=== PATIENT | male | born 1960 | race Caucasian/White ===

== ENCOUNTER → 2017-09-18 | Outpatient (CLI) | payer OTHER | END | disposition home or self-care (01) | LOC: ST 09:36 | PROVIDERS: ATTEND Family Medicine | DX: M17.0 Bilateral primary osteoarthritis of knee (principal) | CPT/HCPCS: 93005 ==

== ENCOUNTER → 2017-09-29 | Outpatient (CLI) | payer OTHER ==
[~2017-09-29] MED LIST: SERT100T PO
[2017-09-29 10:25] LABS: MICROSCOPIC AUTO
[2017-09-29 10:26] LABS: CULTURE INDICATED? YES
[2017-09-29 10:29] LABS: BASOPHILS # (AUTO) 0.03 x10^3/uL (0-0.1); BASOPHILS % (AUTO) 0 % (0-1); EOSINOPHILS # (AUTO) 0.32 x10^3/uL (0-0.4); EOSINOPHILS % (AUTO) 3 % (1-7); LYMPHOCYTES # (AUTO) 1.51 x10^3/uL (1-3.4); LYMPHOCYTES % (AUTO) 15 % (22-44); MD NO; MEAN CORPUSCULAR HEMOGLOBIN 30.1 pg (27.5-34.5); MEAN CORPUSCULAR HGB CONC 33.8 g/dL (33.2-36.2); MEAN PLATELET VOLUME 10.2 fL (7.4-10.4); MONOCYTES # (AUTO) 0.69 x10^3/uL (0.2-0.8); MONOCYTES % (AUTO) 7 % (2-9); NEUTROPHILS # (AUTO) 7.65 x10^3/uL (1.8-6.8); NEUTROPHILS % (AUTO) 75 % (42-75); PLATELET COUNT 219 x10^3/uL (130-400); RED BLOOD COUNT 5.46 x10^6/uL (4.38-5.82); RED CELL DISTRIBUTION WIDTH 13.7 % (9.4-14.8)
== END | disposition home or self-care (01) ==
LOC: STAR 09:07
PROVIDERS: ATTEND Orthopaedic Surgery
DX: Z01.818 Encounter for other preprocedural examination (principal); M17.0 Bilateral primary osteoarthritis of knee
CPT/HCPCS: 36415; 81001; 85025; 87081; 87086

== ENCOUNTER 2017-10-06 09:20 | Inpatient (IN) | payer OTHER ==
[~2017-10-06] VITALS: Ht 185.4 cm; Wt 130.8 kg
[2017-10-06] MEDS ORDERED: LACTATED RINGERS 1,000 ML IV SCH (10:43)
[2017-10-06] MEDS ORDERED: OxyconTIN ER 20 MG TAB.ER PO ONE (11:00)
[2017-10-06] MEDS ORDERED: TAMSULOSIN 0.4 MG CAP.ER.24H PO ONE (11:00)
[2017-10-06] MEDS ORDERED: GABAPENTIN 300 MG CAPSULE PO ONE (11:00)
[2017-10-06] MEDS ORDERED: ACETAMINOPHEN 500 MG TABLET PO ONE (11:00)
[2017-10-06] MEDS ORDERED: MIDAZOLAM 1 MG/ML, 2ML ONE (11:34)
[2017-10-06] MEDS ORDERED: FENTANYL PF 250 MCG/5ML ONE (11:34)
[2017-10-06] MEDS ORDERED: TRANEXAMIC ACID 100 MG/ML, 10ML ONE (11:58)
[2017-10-06] MEDS ORDERED: KETOROLAC 60 MG/2 ML ONE (11:58)
[2017-10-06] MEDS ORDERED: ROPIvacaine/PF 0.2%, 20 ML ONE (11:58)
[2017-10-06] MEDS ORDERED: DEXAMETHASONE 4 MG/ML, 1ML ONE (11:59)
[2017-10-06] MEDS ORDERED: VANCOMYCIN 1,000 MG ONE (11:59)
[2017-10-06] MEDS ORDERED: ONDANSETRON 2MG/ML, 2ML ONE ×2 (11:59→16:16)
[2017-10-06] MEDS ORDERED: LIDOCAINE-MPF 2% ,5ML ONE (11:59)
[2017-10-06] MEDS ORDERED: SODIUM CHLORIDE 0.9% 100 ML ONE (11:59)
[2017-10-06] MEDS ORDERED: CEFAZOLIN 1,000 MG ONE ×2 (11:59→12:43)
[2017-10-06] MEDS ORDERED: PROPOFOL 10 MG/ML, 20ML ONE (11:59)
[2017-10-06] MEDS ORDERED: EPINEPHRINE 1 MG/ML, 1ML ONE (11:59)
[2017-10-06] MEDS ORDERED: BUPIVACAINE/PF 0.25% ONE ×2 (11:59)
[2017-10-06] MEDS ORDERED: SUCCINYLCHOLINE 20 MG/ML, 10ML ONE (12:43)
[2017-10-06] MEDS ORDERED: MEPERIDINE/PF 100 MG/ML ONE (13:16)
[2017-10-06] MEDS ORDERED: OXYcodone 5 MG/5 ML ORAL.SOL UDC PO PRN (13:30)
[2017-10-06] MEDS ORDERED: DIPHENHYDRAMINE 50 MG/ML, 1ML IVPush PRN (13:30)
[2017-10-06] MEDS ORDERED: DIAZEPAM 5 MG/ML, 2ML IVPush PRN (13:30)
[2017-10-06] MEDS ORDERED: ALBUTEROL/IPRATROPIUM 2.5MG/0.5MG, 3 ML NPPB PRN (13:30)
[2017-10-06] MEDS ORDERED: hydrALAzine 20 MG/ML, 1ML IV PRN (13:30)
[2017-10-06] MEDS ORDERED: FENTANYL PF 100 MCG/2ML IV PRN (13:30)
[2017-10-06] MEDS ORDERED: ONDANSETRON ODT 8 MG PO PRN (13:30)
[2017-10-06] MEDS ORDERED: MIDAZOLAM 1 MG/ML, 2ML IV PRN (13:30)
[2017-10-06] MEDS ORDERED: MEPERIDINE/PF 25MG/0.5ML IVPush PRN (13:30)
[2017-10-06] MEDS ORDERED: METOCLOPRAMIDE 5 MG/ML, 2ML IV PRN (13:30)
[2017-10-06] MEDS ORDERED: LABETALOL 5MG/ML, 20ML IV PRN (13:30)
[2017-10-06] MEDS ORDERED: MORPHINE SULFATE 4 MG/ML, 1ML IVPush PRN (13:30)
[2017-10-06] MEDS ORDERED: SCOPOLAMINE PATCH, 1.5MG PATCH.TD72 TD PRN (13:30)
[2017-10-06] MEDS ORDERED: EPHEDRINE 50 MG/ML, 1ML IM PRN (13:30)
[2017-10-06] MEDS ORDERED: PROMETHAZINE 25 MG/ML, 1ML IV PRN (13:30)
[2017-10-06] MEDS ORDERED: FENTANYL PF 100 MCG/2ML ONE ×2 (14:21→16:16)
[2017-10-06] MEDS ORDERED: LIDOCAINE GEL 2%, 5ML ONE (15:07)
[2017-10-06] MEDS ORDERED: MAGNESIUM HYDROXIDE 8%, 30ML UDC PO PRN (15:30)
[2017-10-06] MEDS ORDERED: DIPHENHYDRAMINE 50 MG CAPSULE PO PRN (15:30)
[2017-10-06] MEDS ORDERED: PROMETHAZINE 12.5 MG SUPP PR PRN (15:30)
[2017-10-06] MEDS ORDERED: HYDROmorphone 1 MG/ML, 1ML IV PRN (15:30)
[2017-10-06] MEDS ORDERED: ONDANSETRON 4 MG TABLET PO PRN (15:30)
[2017-10-06] MEDS ORDERED: OXYcodone IR 5MG TABLET PO PRN (15:30)
[2017-10-06] MEDS ORDERED: HYDROcodone/APAP 10/325 MG TABLET PO PRN (15:30)
[2017-10-06] MEDS ORDERED: ZOLPIDEM 5MG TABLET PO PRN (15:30)
[2017-10-06] MEDS ORDERED: ALUMINUM/MAG/SIMETHICONE 30 ML UDC PO PRN (15:30)
[2017-10-06] MEDS ORDERED: BISACODYL 10 MG SUPP PR PRN (15:30)
[2017-10-06] MEDS ORDERED: PROMETHAZINE 25 MG/ML, 1ML IM PRN (15:30)
[2017-10-06] MEDS ORDERED: SENNA/DOCUSATE TABLET PO PRN (15:30)
[2017-10-06] MEDS ORDERED: TRANEXAMIC ACID 2,000 MG in SODIUM CHLORIDE 0.9% 100 ML IVPB ONE (16:00)
[2017-10-06] MEDS ORDERED: LABETALOL 5MG/ML, 20ML ONE (16:07)
[2017-10-06] MEDS: HYDROmorphone 1 MG/ML, 1ML IV PRN ×4 (16:15→16:35)
[2017-10-06] MEDS ORDERED: HYDROmorphone 2 MG/ML, 1ML ONE (16:16)
[2017-10-06] MEDS: ONDANSETRON 2MG/ML, 2ML IV PRN ×2 (16:19→22:49)
[2017-10-06] MEDS: ACETAMINOPHEN 650 MG/20.3 ML UDC PO SCH ×2 (18:15→20:11)
[2017-10-06] MEDS: OXYcodone IR 5MG TABLET PO SCH ×2 (18:15→20:11)
[2017-10-06] MEDS: D5%-0.45% NACL 1,000 ML IV SCH (18:43)
[2017-10-06] MEDS: DOCUSATE 100 MG CAPSULE PO SCH (20:11)
[2017-10-06] MEDS: CEFAZOLIN PMX 2GM/50ML 50 ML IVPB SCH (20:19)
[2017-10-06 20:40] VITALS: BP 140/92
[2017-10-06] MEDS: ASPIRIN 81 MG TABLET EC PO SCH (22:49)
[2017-10-07 00:44] VITALS: BP 129/70
[2017-10-07] MEDS: OXYcodone IR 5MG TABLET PO SCH ×6 (01:08→21:46)
[2017-10-07] MEDS: D5%-0.45% NACL 1,000 ML IV SCH ×4 (02:07→21:10)
[2017-10-07] MEDS: ACETAMINOPHEN 650 MG/20.3 ML UDC PO SCH ×4 (03:30→21:46)
[2017-10-07 04:06] VITALS: BP 130/70
[2017-10-07] MEDS: CEFAZOLIN PMX 2GM/50ML 50 ML IVPB SCH (05:12)
[2017-10-07] MEDS: ASPIRIN 81 MG TABLET EC PO SCH ×2 (05:43→17:46)
[2017-10-07] MEDS ORDERED: DEXAMETHASONE 4 MG/ML, 1ML IVPush SCH (06:00)
[2017-10-07 07:05] VITALS: BP 130/61
[2017-10-07] MEDS: MULTIVITAMINS/MINERALS TABLET PO SCH (08:50)
[2017-10-07] MEDS: SERTRALINE 50MG TABLET PO SCH (08:50)
[2017-10-07] MEDS: DOCUSATE 100 MG CAPSULE PO SCH ×2 (08:51→21:45)
[2017-10-07 13:23] VITALS: BP 121/75
[2017-10-07 20:27] VITALS: BP 111/67
[2017-10-08] MEDS: OXYcodone IR 5MG TABLET PO SCH ×6 (01:39→21:26)
[2017-10-08] MEDS: DIAZEPAM 5 MG TABLET PO PRN ×6 (02:47→23:57)
[2017-10-08 02:49] VITALS: BP 116/68
[2017-10-08] MEDS: ACETAMINOPHEN 650 MG/20.3 ML UDC PO SCH ×4 (03:46→21:26)
[2017-10-08] MEDS: D5%-0.45% NACL 1,000 ML IV SCH ×4 (03:50→22:28)
[2017-10-08] MEDS: ASPIRIN 81 MG TABLET EC PO SCH ×2 (05:38→17:47)
[2017-10-08 08:36] VITALS: BP 126/75
[2017-10-08] MEDS: MULTIVITAMINS/MINERALS TABLET PO SCH (09:29)
[2017-10-08] MEDS: DOCUSATE 100 MG CAPSULE PO SCH ×2 (09:29→20:05)
[2017-10-08] MEDS: SERTRALINE 50MG TABLET PO SCH (09:36)
[2017-10-08 13:07] VITALS: BP 121/68
[2017-10-08] MEDS ORDERED: BUPIVACAINE/PF 0.25% ONE (16:15)
[2017-10-08] MEDS ORDERED: ROPIvacaine/PF 0.2%, 100ML 500 ML in BAG 1 EACH INJ ONE (16:30)
[2017-10-08 20:00] VITALS: BP 120/75
[2017-10-09] MEDS: OXYcodone IR 5MG TABLET PO SCH ×6 (01:31→22:34)
[2017-10-09 02:00] VITALS: BP 122/75
[2017-10-09] MEDS: ACETAMINOPHEN 650 MG/20.3 ML UDC PO SCH ×4 (03:45→22:33)
[2017-10-09] MEDS: DIAZEPAM 5 MG TABLET PO PRN ×2 (04:38→19:55)
[2017-10-09] MEDS: D5%-0.45% NACL 1,000 ML IV SCH ×3 (05:41→19:50)
[2017-10-09] MEDS: ASPIRIN 81 MG TABLET EC PO SCH ×2 (05:41→18:06)
[2017-10-09] MEDS: MULTIVITAMINS/MINERALS TABLET PO SCH (08:20)
[2017-10-09] MEDS: SERTRALINE 50MG TABLET PO SCH (08:20)
[2017-10-09] MEDS: DOCUSATE 100 MG CAPSULE PO SCH ×2 (08:20→22:41)
[2017-10-09 08:24] VITALS: BP 126/75
[2017-10-09 12:10] VITALS: BP 105/67
[2017-10-09 19:09] VITALS: BP 123/68
[2017-10-10 01:33] VITALS: BP 106/63
[2017-10-10] MEDS: OXYcodone IR 5MG TABLET PO SCH ×4 (03:05→15:43)
[2017-10-10] MEDS: DIAZEPAM 5 MG TABLET PO PRN (03:12)
[2017-10-10] MEDS: ACETAMINOPHEN 650 MG/20.3 ML UDC PO SCH ×2 (05:21→11:39)
[2017-10-10 06:40] VITALS: BP 120/69
[2017-10-10] MEDS: ASPIRIN 81 MG TABLET EC PO SCH (07:49)
[2017-10-10] MEDS: MULTIVITAMINS/MINERALS TABLET PO SCH (09:26)
[2017-10-10] MEDS: SERTRALINE 50MG TABLET PO SCH ×2 (09:27→09:30)
[2017-10-10] MEDS: DOCUSATE 100 MG CAPSULE PO SCH (09:28)
[2017-10-10] MEDS ORDERED: OXYC5CAP2 PO (11:54)
[2017-10-10] MEDS ORDERED: ASPI-496 PO (11:55)
[2017-10-10] MEDS ORDERED: DIAZ5TAB PO (11:55)
[2017-10-10] MEDS ORDERED: ACET-1600 PO (11:56)
[2017-10-10 13:07] VITALS: BP 108/54
== END 2017-10-10 17:18 | DRG 462 ==
LOC: ORIP 10:07 → EDSTATUS 11:00 → 4NOR 17:55
PROVIDERS: ADMIT Orthopaedic Surgery; ATTEND Orthopaedic Surgery
PROC: 0SRC069 Replacement of Right Knee Joint with Oxidized Zirconium on Polyethylene Synthetic Substitute, Cemented, Open Approach (ICD-10-PCS; 2017-10-06)
PROC: 3E0T3BZ Introduction of Anesthetic Agent into Peripheral Nerves and Plexi, Percutaneous Approach (ICD-10-PCS; 2017-10-06)
PROC: 3E0T3BZ Introduction of Anesthetic Agent into Peripheral Nerves and Plexi, Percutaneous Approach (ICD-10-PCS; 2017-10-06)
PROC: 0SRD069 Replacement of Left Knee Joint with Oxidized Zirconium on Polyethylene Synthetic Substitute, Cemented, Open Approach (ICD-10-PCS; principal; 2017-10-06 13:15)
DX: M17.0 Bilateral primary osteoarthritis of knee (principal); F32.9 Major depressive disorder, single episode, unspecified; E66.9 Obesity, unspecified; G47.33 Obstructive sleep apnea (adult) (pediatric); Z68.38 Body mass index [BMI] 38.0-38.9, adult
CPT/HCPCS: 36415; 85014; 85018; C1713; J0171; J0690; J1100; J1170; J1885; J2250; J2405; J2704; J2795; J3010; J3370; J3490; C1776; J0330; J2175; J7120

== ENCOUNTER 2020-09-28 00:22 | Emergency (ER) | payer OTHER ==
[~2020-09-28] VITALS: Ht 188 cm; Wt 122.0 kg
[~2020-09-28 00:22] MED LIST changes: +ACET-1600 PO; +ASPI-496 PO; +DIAZ5TAB PO; +OXYC5CAP2 PO
--- NOTE | 2020-09-28 00:30 | NUR ---
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 PAIN ON RIGHT FRONT ABD AND RIGHT FLANK. UA OBTAINED QUITE BLOODY. "I HAVE A HX OF KIDNEY STONES OR IT COULD BE MY CANCER." TOOK 1GM OF APAP AT 10P
[2020-09-28] MEDS ORDERED: ONDANSETRON 2MG/ML, 2ML ONE (00:53)
[2020-09-28] MEDS ORDERED: MORPHINE SULFATE 4 MG/ML, 1ML ONE (00:55)
[2020-09-28 00:56] LABS: BASOPHILS % (AUTO) 1 % (0-1); EOSINOPHILS % (AUTO) 7 % (1-7); LYMPHOCYTES % (AUTO) 24 % (22-44); MEAN CORPUSCULAR HEMOGLOBIN 28.1 pg (27.5-34.5); MEAN CORPUSCULAR HGB CONC 33.7 g/dL (33.2-36.2); MONOCYTES % (AUTO) 10 % (2-9); NEUTROPHILS % (AUTO) 59 % (42-75); PLATELET COUNT 243 x10^3/uL (130-400); RED BLOOD COUNT 4.88 x10^6/uL (4.38-5.82); RED CELL DISTRIBUTION WIDTH 16.2 % (9.4-14.8)
[2020-09-28] MEDS ORDERED: ONDANSETRON 2MG/ML, 2ML IVPush ONE (01:00)
[2020-09-28] MEDS ORDERED: MORPHINE SULFATE 4 MG/ML, 1ML IVPush PRN (01:00)
[2020-09-28] MEDS ORDERED: SODIUM CHLORIDE FLUSH 10ML SYR IVF ONE (01:00)
[2020-09-28 01:07] LABS: ALANINE AMINOTRANSFERASE 56 U/L (12-78); ALBUMIN 3.5 g/dL (3.4-5.0); ANION GAP 8 mmol/L (5-15); CALCIUM 8.9 mg/dL (8.5-10.1); CHLORIDE 112 mmol/L (98-107); CREATININE 0.89 mg/dL (0.7-1.3)
[2020-09-28 01:08] LABS: ALKALINE PHOSPHATASE 105 U/L (45-117); BILIRUBIN,TOTAL 0.2 mg/dL (0.2-1.0); TOTAL PROTEIN 7.4 g/dL (6.4-8.2)
--- NOTE | 2020-09-28 01:08 | NUR ---
REPORT TO GIULIANA FRYE
[2020-09-28 01:17] LABS: MICROSCOPIC INDICATED
--- NOTE | 2020-09-28 01:24 | NUR ---
piv placed and pt medicated for pain per emar
[2020-09-28] MEDS ORDERED: OMNIPAQUE 350 MG/ML, 100ML BOTTLE ONE (02:30)
--- NOTE | 2020-09-28 03:19 | NUR ---
RELIEF RN: PT [id number]. VSS. DENIES ANY PAIN. AWARE OF PLAN TO ADMIT, REQUESTING JELLO/ICE CREAM. WILL CTM. [facility]
[2020-09-28] MEDS ORDERED: KETOROLAC 30 MG/1 ML IVPush ONE (04:00)
[2020-09-28] MEDS ORDERED: KETOROLAC 30 MG/1 ML ONE (04:11)
[2020-09-28 04:18] VITALS: BP 125/74
== END 2020-09-28 04:43 | disposition home or self-care (01) ==
LOC: ED 00:44
DX: N13.2 Hydronephrosis with renal and ureteral calculous obstruction (principal)
CPT/HCPCS: 36415; 74177; 80053; 81001; 83690; 85025; 87086; 96374; 96375; 99285; J1885; J2270; J2405; Q9967

== ENCOUNTER 2020-10-07 08:29 | Day surgery (SDC) | payer OTHER ==
[~2020-10-07] VITALS: Ht 190.5 cm; Wt 123.0 kg
[~2020-10-07 08:29] MED LIST changes: +CEFAZOLIN 1,000 MG ONE; +FENTANYL PF 250 MCG/5ML ONE; +GLYCOPYRROLATE 0.2MG/1ML, 5ML ONE; +MIDAZOLAM 1 MG/ML, 2ML ONE; +NEOSTIGMINE 1 MG/ML, 10ML ONE; +PROPOFOL 10 MG/ML, 20ML ONE; +ROCURONIUM 10MG/ML,5ML ONE
[2020-10-07] MEDS ORDERED: FENTANYL PF 250 MCG/5ML ONE (09:03)
[2020-10-07 09:50] VITALS: BP 126/89
[2020-10-07] MEDS ORDERED: MEPERIDINE/PF 25MG/0.5ML IVPush PRN (10:00)
[2020-10-07] MEDS ORDERED: morphine SULFATE 10 MG/ML, 1ML IVPush PRN (10:00)
[2020-10-07] MEDS ORDERED: ONDANSETRON 2MG/ML, 2ML IVPush PRN (10:00)
[2020-10-07] MEDS ORDERED: LABETALOL 5MG/ML, 20ML IV PRN (10:00)
[2020-10-07] MEDS ORDERED: ACETAMINOPHEN 325 MG TABLET PO PRN (10:00)
[2020-10-07] MEDS ORDERED: FENTANYL PF 100 MCG/2ML IV PRN (10:00)
[2020-10-07] MEDS ORDERED: hydrALAzine 20 MG/ML, 1ML IV PRN (10:00)
[2020-10-07] MEDS ORDERED: HYDROmorphone 1 MG/ML, 1ML INJ IVPush PRN (10:00)
[2020-10-07] MEDS ORDERED: OMNIPAQUE 350 MG/ML, 50 ML BOTTLE ONE (10:20)
[2020-10-07] MEDS ORDERED: PLEASE ENTER HEIGHT AND WEIGHT MC SCH (10:30)
[2020-10-07] MEDS ORDERED: CEFAZOLIN 1,000 MG ONE (11:02)
[2020-10-07] MEDS ORDERED: KETOROLAC 30 MG/1 ML ONE (11:19)
[2020-10-07] MEDS ORDERED: OXYcodone 5 MG/5 ML ORAL.SOL UDC ONE ×2 (11:20→12:04)
[2020-10-07] MEDS: OXYcodone 5 MG/5 ML ORAL.SOL UDC PO PRN ×2 (11:30→12:00)
[2020-10-07] MEDS ORDERED: KETOROLAC 30 MG/1 ML IVPush ONE (11:30)
[2020-10-07] MEDS ORDERED: ACETAMINOPHEN 650 MG/20.3 ML UDC ONE (11:32)
[2020-10-07] MEDS ORDERED: hydrALAzine 20 MG/ML, 1ML ONE (11:33)
[2020-10-07 12:40] VITALS: BP 126/78
== END 2020-10-07 18:34 | disposition home or self-care (01) ==
LOC: OR 08:29 → 4NE 08:34 → OR 18:34
PROVIDERS: ATTEND Urology
DX: N20.1 Calculus of ureter (principal); F15.90 Other stimulant use, unspecified, uncomplicated; Z88.8 Allergy status to other drugs, medicaments and biological substances; Z20.822 Contact with and (suspected) exposure to COVID-19; Z79.899 Other long term (current) drug therapy; Z79.82 Long term (current) use of aspirin; Z98.890 Other specified postprocedural states
CPT/HCPCS: 52356; 74018; 87635; C1769; C2617; J0690; J1885; J2250; J2704; J2710; J3010; Q9967; 76000; G0378